=== PATIENT | female | born 1950 | race Caucasian/White ===

== ENCOUNTER 2018-08-05 11:05 | Day surgery (SDC) | payer MEDICARE, OTHER ==
[~2018-08-05 11:05] MED LIST: ALBU90OI6 INH; BUDE10.22; DILT60ER PO; HYDR1TAB94 PO; LEVSOD100 PO; MONT10T PO; PRAV20 PO; VALSARTAN-HCTZ1 EACH PO
== END 2018-08-05 22:46 | disposition home or self-care (01) ==
LOC: WOUND 11:05
PROC: 0HBKXZZ Excision of Right Lower Leg Skin, External Approach (ICD-10-PCS; principal; 2018-08-05)
DX: S81.801A Unspecified open wound, right lower leg, initial encounter (principal); E87.5 Hyperkalemia; I10 Essential (primary) hypertension; J45.909 Unspecified asthma, uncomplicated
CPT/HCPCS: G0463

== ENCOUNTER 2018-08-12 09:15 | Day surgery (SDC) | payer MEDICARE, OTHER | END 2018-08-12 10:40 | disposition home or self-care (01) | LOC: WOUND 09:15 | DX: L97.812 Non-pressure chronic ulcer of other part of right lower leg with fat layer exposed (principal); E78.5 Hyperlipidemia, unspecified; I10 Essential (primary) hypertension; J45.909 Unspecified asthma, uncomplicated ==

== ENCOUNTER 2018-08-19 08:56 | Day surgery (SDC) | payer MEDICARE, OTHER | END 2018-08-19 22:39 | disposition home or self-care (01) | LOC: WOUND 08:56 | DX: L97.812 Non-pressure chronic ulcer of other part of right lower leg with fat layer exposed (principal); E78.5 Hyperlipidemia, unspecified; I10 Essential (primary) hypertension; J45.909 Unspecified asthma, uncomplicated | CPT/HCPCS: G0463 ==

== ENCOUNTER 2018-09-16 00:09 | Day surgery (SDC) | payer MEDICARE, OTHER | END 2018-09-16 23:02 | disposition home or self-care (01) | LOC: WOUND 00:09 | DX: L97.812 Non-pressure chronic ulcer of other part of right lower leg with fat layer exposed (principal); I10 Essential (primary) hypertension | CPT/HCPCS: G0463 ==

== ENCOUNTER 2019-03-02 07:14 | Day surgery (SDC) | payer MEDICARE, OTHER ==
[~2019-03-02 07:14] MED LIST changes: +ESTR2 PO
--- NOTE | 2019-03-02 08:27 | NUR ---
Ambulatory in Day Surgery. Surgical site prepped with 2% Chlorhexidine cloth wipe. History, Chart, Medications and Allergies reviewed before start of procedure. Lungs clear T/O to Auscultation. Patient confirms NPO status and agrees with scheduled surgery. Pre-Op teaching done. Pt verbalizes understanding. Patient States Post-Procedure ride home has been arranged. Patient reports completing Chlorhexadine shower X2 prior to admission to hospital.
--- NOTE | 2019-03-02 11:48 | NUR ---
HANDOFF TO KAJAL VARNER.
--- NOTE | 2019-03-02 11:51 | NUR ---
ACCEPTED CARE OF PATIENT, REPORT RECEIVED. PT STATES PAIN 5/10 AT THIS TIME. EATING CRACKERS, SIPPING ON WATER - TOLERATING WELL. NO BLEEDING NOTED TO DRESSING.
--- NOTE | 2019-03-02 12:00 | NUR ---
MEDICATED WITH ONE NORCO AT THIS TIME PER MD ORDER. PT INITIALLY REQUESTED 2 PILLS BUT DECIDED ON ONE AFTER FURTHER DISCUSSION.
--- NOTE | 2019-03-02 12:03 | NUR ---
MD TO BEDSIDE TO REVIEW PROCEDURE. QUESTIONS ASKED/ANSWERED BY MD.
--- NOTE | 2019-03-02 12:27 | NUR ---
HANDOFF PATIENT TO TELLY MENDOZA UPON RETURN FROM LUNCH. PT HAS NO FURTHER C/O AT THIS TIME.
--- NOTE | 2019-03-02 13:05 | NUR ---
"DAY SURGERY RN | DISCHARGE VSS. A/O. No issues. Steady on feet. Tolerating PO fluids and food. Denies pain and nausea. Site C/D/I. Discharge instructions and RX given. Patient taken in wheelchair to front entrance by wheelchair by this RN. Family is ride home."
== END 2019-03-02 22:48 | disposition home or self-care (01) ==
LOC: ORSCMMR 07:14 → ORD 08:45 → ORSCMMR 08:45
PROVIDERS: Surgery
PROC: 0WB80ZX Excision of Chest Wall, Open Approach, Diagnostic (ICD-10-PCS; principal; 2019-03-02 08:45)
DX: D17.1 Benign lipomatous neoplasm of skin and subcutaneous tissue of trunk (principal); I10 Essential (primary) hypertension; J45.909 Unspecified asthma, uncomplicated; E03.9 Hypothyroidism, unspecified; Z87.891 Personal history of nicotine dependence; Z79.899 Other long term (current) drug therapy
CPT/HCPCS: 88304; A9270-GY; J0690; J1100; J1885; J2250; J2370; J2405; J2704; J3010; J7120

== ENCOUNTER 2019-08-25 07:51 | Day surgery (SDC) | payer MEDICARE, OTHER ==
[~2019-08-25] VITALS: Ht 154.9 cm; Wt 54.5 kg
[~2019-08-25 07:51] MED LIST changes: +B-125000 MCG SL; -BUDE10.22; +BUDE10.22 INH; +Estradiol0.5 MG PO; +GLUCOSAMINE CO1 EACH PO; +LORA1 PO; +VITAMIN D31000 UNI2 PO
== END 2019-08-25 11:40 | disposition home or self-care (01) ==
LOC: ORSCSDS 07:51
PROVIDERS: Orthopaedic Surgery
PROC: 0LS14ZZ Reposition Right Shoulder Tendon, Percutaneous Endoscopic Approach (ICD-10-PCS; principal; 2019-08-25 09:10)
PROC: 0RNJ4ZZ Release Right Shoulder Joint, Percutaneous Endoscopic Approach (ICD-10-PCS; principal; 2019-08-25 09:10)
PROC: 0RHJ44Z Insertion of Internal Fixation Device into Right Shoulder Joint, Percutaneous Endoscopic Approach (ICD-10-PCS; principal; 2019-08-25 09:10)
PROC: 0LQ14ZZ Repair Right Shoulder Tendon, Percutaneous Endoscopic Approach (ICD-10-PCS; principal; 2019-08-25 09:10)
DX: S46.011A Strain of muscle(s) and tendon(s) of the rotator cuff of right shoulder, initial encounter (principal); S46.111A Strain of muscle, fascia and tendon of long head of biceps, right arm, initial encounter; M75.51 Bursitis of right shoulder; I10 Essential (primary) hypertension; E78.5 Hyperlipidemia, unspecified; J45.909 Unspecified asthma, uncomplicated; E03.9 Hypothyroidism, unspecified; F41.8 Other specified anxiety disorders; Z79.899 Other long term (current) drug therapy; Z87.891 Personal history of nicotine dependence
CPT/HCPCS: C1713; J0171; J0690; J1100; J1885; J2001; J2250; J2370; J2405; J2704; J3010

== ENCOUNTER 2022-08-21 06:39 | Day surgery (SDC) | payer MEDICARE, OTHER ==
[~2022-08-21] VITALS: Ht 154.9 cm; Wt 56.5 kg
[~2022-08-21 06:39] MED LIST changes: +ACET500; +Estrace Vagin42.5 GM; +FISH OIL 1,2001 EAC4 PO; +FLUT1DIS5 INH; +GABA100; +NAPR220 PO; +QVAR REDIHALE10.6 G2 INH; +ZYRTEC10 M1 PO; +ZYRTEC10 M2 PO
[2022-08-21] MEDS ORDERED: EUTHYROX50 MCG PO (07:00)
== END 2022-08-21 08:51 | disposition home or self-care (01) ==
LOC: ORSCSDS 06:39
PROVIDERS: Student in an Organized Health Care Education/Training Program
PROC: 08RK3JZ Replacement of Left Lens with Synthetic Substitute, Percutaneous Approach (ICD-10-PCS; principal; 2022-08-21 08:00)
DX: H25.12 Age-related nuclear cataract, left eye (principal); Z87.891 Personal history of nicotine dependence; J45.909 Unspecified asthma, uncomplicated; H35.30 Unspecified macular degeneration; I10 Essential (primary) hypertension; Z79.51 Long term (current) use of inhaled steroids; Z79.899 Other long term (current) drug therapy
CPT/HCPCS: A9270; J1642; J2001; J2250; J3010; J7040; V2632

== ENCOUNTER → 2024-10-14 | Outpatient (CLI) | payer MEDICARE, OTHER ==
[~2024-10-14] MED LIST changes: +EUTHYROX50 MCG PO
[2024-10-14 16:38] LABS: Campylobacter Sp Not Detected (NOT DETECT); Plesiomonas Shigelloides Not Detected (NOT DETECT); Salmonella Sp Not Detected (NOT DETECT); Vibrio Sp Not Detected (NOT DETECT); Yersinia Enterocolitica Not Detected (NOT DETECT)
[2024-10-14 16:39] LABS: Adenovirus F 40/41 Not Detected (NOT DETECT); Astrovirus Not Detected (NOT DETECT); Cryptosporidium Not Detected (NOT DETECT); Cyclospora Cayetanensis Not Detected (NOT DETECT); E. Coli O157 Not Detected (NOT DETECT); Entamoeba Histolytica Not Detected (NOT DETECT); Enteroaggregative E. coli-EAEC Not Detected (NOT DETECT); Enteropathogenic E. coli-EPEC Not Detected (NOT DETECT); Enterotoxigenic E. coli-ETEC Not Detected (NOT DETECT); Giardia Lamblia Not Detected (NOT DETECT); Norovirus GI/GII Not Detected (NOT DETECT); Rotavirus A Not Detected (NOT DETECT); Sapovirus Not Detected (NOT DETECT); Shiga Toxin-prod E. coli-STEC Not Detected (NOT DETECT); Shigella/Enteroin E. coli-EIEC Not Detected (NOT DETECT); Vibrio Cholerae Not Detected (NOT DETECT)
== END | disposition home or self-care (01) ==
LOC: LAB 11:39 → LAB SHORT 11:39
PROVIDERS: Internal Medicine
DX: R19.7 Diarrhea, unspecified (principal)
CPT/HCPCS: 87507

== ENCOUNTER → 2024-12-08 | Outpatient (CLI) | payer MEDICARE, OTHER ==
[2024-12-13 05:20] LABS: MMA S/P,VITAMIN B12 STATUS 0.13 umol/L (0.00-0.40)
== END ==
LOC: LAB 17:23 → LAB SHORT 17:23
PROVIDERS: Internal Medicine
DX: E53.8 Deficiency of other specified B group vitamins (principal)
CPT/HCPCS: 82607; 82746; 83921